=== PATIENT | male | born 1955 | race American Indian/Alaskan Native ===

== ENCOUNTER 2016-10-24 05:52 | Inpatient (IN) | payer MEDICAID, MEDICARE ==
[2016-10-24] MEDS ORDERED: EPINEPHrine 1 mg/ml (1:1000) Inj SC ONE (06:00)
[2016-10-24] MEDS ORDERED: DiphenhydrAMINE 50 mg/ml Inj IVP STA ×2 (06:00)
[2016-10-24] MEDS ORDERED: EPINEPHrine 1 mg/ml (1:1000) Inj IV ONE (06:00)
--- NOTE | 2016-10-24 06:02 | C.PDOC ---
History Of Present Illness patient presents by himself to the ed complaining of swollen tongue. Pt has just started hctz/lisinopril for hypertension . Tolerating his own secretions. No chest pain, palpitations Time Seen by Provider: 10/24/16 05:59 Chief Complaint (Nursing): Allergic Reaction History Per: Patient History/Exam Limitations: clinical condition Onset/Duration Of Symptoms: Hrs Current Symptoms Are (Timing): Still Present Context: Other (medication) Possible Cause: Medication, RAHUL Inhibitor Associated Symptoms: Swelling Home/EMS Treatment: None Severity: Severe Pain Scale Rating Of: 9 Recent travel outside of the [place]: No Additional History Per: Patient Past Medical History Reviewed: Historical Data, Nursing Documentation, Vital Signs Vital Signs: Last Vital Signs Temp 97.2 F L 10/24/16 05:55 Pulse 81 10/24/16 06:39 Resp 14 10/24/16 06:39 BP 144/85 10/24/16 06:39 Pulse Ox 100 10/24/16 06:39 - Medical History PMH: HTN - [facility] Procedures CLOSURE SKIN & SUBCUTANEOUS NEC (03/25/13) Family History: States: No Known Family Hx - Social History Hx Tobacco Use: Yes Hx Alcohol Use: Yes (chronic alcoholic) Hx Substance Use: No - Immunization History Hx Tetanus Toxoid Vaccination: No Hx Influenza Vaccination: No Hx Pneumococcal Vaccination: No Review Of Systems Constitutional: Negative for: Sweats Eyes: Negative for: Redness ENT: Positive for: Mouth Swelling, Throat Swelling. Negative for: Throat Pain Cardiovascular: Negative for: Chest Pain Respiratory: Positive for: Shortness of Breath Gastrointestinal: Negative for: Nausea, Vomiting Genitourinary: Negative for: Dysuria Musculoskeletal: Negative for: Back Pain Skin: Negative for: Rash Neurological: Negative for: Weakness Psych: Negative for: Anxiety Physical Exam - Physical Exam Appears: In Acute Distress Skin: Warm, Dry Head: Normacephalic Eye(s): bilateral: Normal Inspection Nose: Normal Oral Mucosa: Moist Tongue: Swelling Lips: Swelling (mild) Gingiva: Normal Appearing Throat: No Drooling Neck: Trachea Midline, Supple Chest: Symmetrical Cardiovascular: Rhythm Regular Respiratory: No Rales, No Rhonchi, No Wheezing Gastrointestinal/Abdominal: Soft, No Tenderness, No Distention Back: No CVA Tenderness Extremity: Normal ROM Extremity: Bilateral: Atraumatic, No Pedal Edema Pulses: Left Dorsalis Pedis: Normal, Right Dorsalis Pedis: Normal Neurological/Psych: Oriented x3, Normal Speech, Normal Cognition Gait: Steady ED Course And Treatment - Laboratory Results Result Diagrams: 10/24/16 06:22 ECG: Interpreted By Me, Viewed By Me ECG Rhythm: Sinus Rhythm (80), 1st Degree HB, Nonspecific Changes Rate From EC Pulse Ox Interpretation: Normal - Radiology CXR: Interpreted by Me Progress Note: started on solumedrol,pepcid, benadryl and sq epi. Saturation 98- 100%. spoke with anesthesia finance controller - they're aware of the pt's condition and possible intubation. spoke with general surgery and they're also aware of possible emergency trach Critical Care Time - Critical Care Note Total Time (in mins): 30 Documented critical care: time excludes all time spent performing seperately billable procedures. Disposition Counseled Patient/Family Regarding: Studies Performed, Diagnosis - Disposition Disposition Time: 05:59 Condition: GUARDED Forms: [facility] [employer] ([place]rian) - Clinical Impression Clinical Impression: Angioedema Physician Patient Turnover Patient Signed Over To: Natalya Flannery Handoff Comments: pending labs, re-assesment and admission
[2016-10-24] MEDS ORDERED: Sodium Chloride 0.9% 1,000 ML IV ONE (06:13)
[2016-10-24 06:26] LABS: BASO # 0.1 K/uL (0.0-0.2); BASO % 1.2 % (0.0-2.0); EOS # 0.6 K/uL (0.0-0.7); HEMATOCRIT 44.4 % (35.0-51.0); LYMPH # 3.1 K/uL (1.0-4.3); LYMPH % 37.2 % (20.0-40.0); MEAN CELL VOLUME 95.3 fL (80.0-94.0); MEAN CORPUSCULAR HEMOGLOBIN 32.4 pg (27.0-31.0); MEAN PLATELET VOLUME 10.6 fL (7.2-11.7); MONO # 1.2 K/uL (0.0-0.8); NRBC % 0.2 % (0.0-2.0); RED CELL DISTRIBUTION WIDTH 13.4 % (11.5-14.5); WHITE BLOOD COUNT 8.5 K/uL (4.8-10.8)
[2016-10-24 06:54] LABS: BLOOD UREA NITROGEN 16 mg/dL (9-20); CALCIUM 9.1 mg/dl (8.6-10.4); CARBON DIOXIDE 25 mmol/L (22-30); CHLORIDE 101 mmol/L (98-107); GFR AFRICAN-AMERICAN > 60; GLUCOSE,RANDOM 89 mg/dL (75-110); POTASSIUM 3.9 mmol/L (3.6-5.2); SODIUM 138 mmol/L (132-148)
--- NOTE | 2016-10-24 07:59 | RAD ---
PROCEDURE: CHEST RADIOGRAPH, 1 VIEW HISTORY: angioedema COMPARISON: None available. FINDINGS: LUNGS: Shallow lung volumes. Asymmetrical elevation -left hemidiaphragm-chronicity unknown no consolidation PLEURA: No pneumothorax or pleural fluid seen. CARDIOVASCULAR: Normal heart size. Possible mild central pulmonary venous congestion OSSEOUS STRUCTURES: No significant abnormalities. VISUALIZED UPPER ABDOMEN: Normal. OTHER FINDINGS: None. IMPRESSION: Possible mild central pulmonary venous congestion (versus crowding -shallow lung volumes). . Normal heart size
[2016-10-24 08:08] LABS: INR 1.1
[2016-10-24] MEDS ORDERED: DiphenhydrAMINE 50 mg/ml Inj IVP PRN (10:30)
[2016-10-24] MEDS: Dexamethasone 4 mg/1 ml IV SCH ×2 (10:50→18:07)
[2016-10-24] MEDS: DiphenhydrAMINE 50 mg/ml Inj IVP SCH ×2 (10:59→18:07)
--- NOTE | 2016-10-24 12:43 | CP.PCM.CON ---
History of Present Illness - History of Present Illness History of Present Illness: General Surgery- Dr. Suero 61M hx HTN presented to the ED with Angioedema after taking is RAHUL-I for the first time earlier today. Pt was given Benadryl and symptoms are slowly resolving. Pt is able to speak during encounter. AVSS. Denies current Nausea, vomiting, diarrhea, fevers, chills, CP. PMH: HTN PSH: none ALL: NKDA Past Patient History - Infectious Disease Hx of Infectious Diseases: None - Past Social History Smoking Status: Never Smoked - CARDIAC Hx Hypertension: Yes - MUSCULOSKELETAL/RHEUMATOLOGICAL Hx Falls: No - PSYCHIATRIC Hx Substance Use: No - SURGICAL HISTORY Hx Surgeries: Yes Hx Cataract Extraction: Yes (left eye) - ANESTHESIA Hx Anesthesia: Yes Hx Anesthesia Reactions: No Hx Malignant Hyperthermia: No Has any member of the family had a problem w/ anesthesia?: No Meds Allergies/Adverse Reactions: Allergies Allergy/AdvReac Type Severity Reaction Status Date / Time No Known Allergies Allergy Verified 10/24/16 06:13 - Medications Medications: Current Medications Dexamethasone (Decadron Inj) 4 mg IV Q8H [facility] Last Admin: 10/24/16 10:50 Dose: 4 mg Diphenhydramine HCl (Benadryl) 25 mg IVP Q8H [facility] Stop: 10/25/16 03:01 Last Admin: 10/24/16 10:59 Dose: 25 mg Famotidine (Pepcid) 20 mg IVP DAILY [facility] Last Admin: 10/24/16 10:51 Dose: 20 mg Heparin Sodium (Porcine) (Heparin) 5,000 units SC Q12 [facility] Last Admin: 10/24/16 10:53 Dose: 5,000 units Physical Exam - Constitutional Appears: Agitated - Head Exam Additional comments: tongue swollen however able to speak - Respiratory Exam Respiratory Exam: NORMAL BREATHING PATTERN. absent: Accessory Muscle Use, Rhonchi, Wheezes - Cardiovascular Exam Cardiovascular Exam: +S1, +S2 - GI/Abdominal Exam GI & Abdominal Exam: Soft. absent: Distended, Firm, Rigid, Tenderness - Extremities Exam Extremities exam: Positive for: normal capillary refill - Neurological Exam Neurological exam: Alert, Oriented x3 - Skin Skin Exam: Normal Color Results - Vital Signs Recent Vital Signs: Last Vital Signs Temp 98.3 F 10/24/16 12:00 Pulse 69 10/24/16 12:00 Resp 16 08/17/17 12:09 BP 133/98 H 10/24/16 12:00 Pulse Ox 99 10/24/16 12:09 - Labs Result Diagrams: 10/24/16 06:22 10/24/16 06:22 Labs: Laboratory Results - last 24 hr 10/24/16 10/24/16 07:54 07:54 PT 11.9 INR 1.1 APTT 26 Blood Type A POSITIVE Blood Type Confirm A POSITIVE Antibody Screen Negative Assessment & Plan - Assessment and Plan (Free Text) Assessment: 61M w/ angioedema Plan: - airway is not compromised at this time - no acute surgical intervention at this time - further recs per Dr. Pio Brooks PGY1
--- NOTE | 2016-10-24 13:37 | OP ---
PROCEDURE DATE: 10/24/2016 PREOPERATIVE DIAGNOSIS: Possible airway obstruction. POSTOPERATIVE DIAGNOSIS: Possible airway obstruction. PROCEDURE: Flexible laryngoscopy. SIGNIFICANT FINDINGS: No airway obstruction. DESCRIPTION OF PROCEDURE: The patient was placed in a seated position. Nose was decongested using Afrin. A flexible laryngoscope was inserted into the nasal cavity. It was passed to the nasopharynx, oropharynx, hypopharynx. The base of tongue, vallecula, epiglottis, A/E folds, arytenoids, false cords, true cords, pharyngeal anton, piriform sinuses were brought in to view. No masses or lesions were noted. No erythema or edema was noted. The scope was removed. The patient tolerated the procedure. Airway obstruction not noted. Adrián Cota MD
--- NOTE | 2016-10-24 16:40 | CP.PCM.HP ---
History of Present Illness - History of Present Illness History of Present Illness: Patient's with a history of hypertension history of osteoarthritis came in as somebody started him on lisinopril recently came in with the tongue swelling unable to speak and swelling of the lips received a steroid patient's was improved seen by Dr. Whelan seen by evp and chief operating officer eventually patient is hospitalized no fever no chills no nausea vomiting not taking anymore lisinopril Past Patient History - Infectious Disease Hx of Infectious Diseases: None - Past Social History Smoking Status: Never Smoked - CARDIAC Hx Hypertension: Yes - MUSCULOSKELETAL/RHEUMATOLOGICAL Hx Falls: No - PSYCHIATRIC Hx Substance Use: No - SURGICAL HISTORY Hx Surgeries: Yes Hx Cataract Extraction: Yes (left eye) - ANESTHESIA Hx Anesthesia: Yes Hx Anesthesia Reactions: No Hx Malignant Hyperthermia: No Has any member of the family had a problem w/ anesthesia?: No Meds Allergies/Adverse Reactions: Allergies Allergy/AdvReac Type Severity Reaction Status Date / Time No Known Allergies Allergy Verified 10/24/16 06:13 Physical Exam - Constitutional Appears: Well - Head Exam Head Exam: ATRAUMATIC, NORMAL INSPECTION, NORMOCEPHALIC - Eye Exam Eye Exam: EOMI, Normal appearance, PERRL Pupil Exam: NORMAL ACCOMODATION, PERRL - ENT Exam ENT Exam: Mucous Membranes Moist, Normal Exam - Neck Exam Neck exam: Positive for: Normal Inspection - Respiratory Exam Respiratory Exam: Decreased Breath Sounds - Cardiovascular Exam Cardiovascular Exam: REGULAR RHYTHM, +S1, +S2 - GI/Abdominal Exam GI & Abdominal Exam: Diminished Bowel Sounds, Soft - Rectal Exam Rectal Exam: Deferred Results - Vital Signs Recent Vital Signs: Last Vital Signs Temp 97.6 F 10/24/16 16:00 Pulse 67 10/24/16 16:00 Resp 18 10/24/16 16:00 BP 121/80 10/24/16 15:55 Pulse Ox 96 10/24/16 16:00 - Labs Result Diagrams: 10/24/16 06:22 10/24/16 06:22 Labs: Laboratory Results - last 24 hr 10/24/16 10/24/16 07:54 07:54 PT 11.9 INR 1.1 APTT 26 Blood Type A POSITIVE Blood Type Confirm A POSITIVE Antibody Screen Negative
--- NOTE | 2016-10-24 18:05 | CP.CCUPN ---
CCU Subjective - Physician Review Events Since Last Encounter (Free Text): 10/24/16 18:28 The Patient was seen and examined at the bedside, Medical records reviewed, and management issues were discussed and formulated. All clinical/lab/hemodynamic/radiographic data were reviewed 61 Y/O M with PMHx of HTN, who presents by himself to the emergency department complaining of swollen tongue, Pt was recently started on hctz/Lisinopril. On Exam Tongue significantly swollen but not protruding from lips, No stridor and tolerating his own secretions. No chest pain, palpitations, Fever/chills Pt was given Solumedrol, Pepcid, Benadryl and sq. epi. for Angioedema He was evaluated by Surgery, ENT and anesthesia, and admitted to the ICU for further managements. CCU Objective - Vital Signs / Intake & Output Vital Signs (Last 4 hours): Vital Signs Temp Pulse Resp BP Pulse Ox 10/24/16 16:00 97.6 F 67 18 96 10/24/16 15:55 68 18 121/80 97 10/24/16 15:50 66 19 96 10/24/16 15:40 67 21 96 10/24/16 15:30 67 20 97 10/24/16 15:20 69 18 97 10/24/16 15:10 65 16 96 10/24/16 15:00 68 19 127/96 H 96 10/24/16 14:55 69 14 127/96 H 96 10/24/16 14:50 71 20 96 10/24/16 14:40 67 17 97 10/24/16 14:30 66 16 96 10/24/16 14:20 66 17 95 10/24/16 14:10 69 16 96 Intake and Output (Last 8hrs): Intake & Output 10/24/16 10/24/16 10/24/16 06:59 14:59 22:59 Intake Total 413 0 Output Total 700 200 Balance -287 -200 Weight 239 lb 8 oz Intake: Intake, IV Amount 100 Left Antecubital 100 Oral 0 0 Blood Product 313 Output: Urine 700 200 Urine, Voided 300 200 Other: # Bowel Movements 0 0 - Physical Exam Head: Positive for: Atraumatic, Normocephalic. Negative for: Tenderness, Contusion Pupils: Positive for: PERRL. Negative for: Sluggish, Non-Reactive Extroacular Muscles: Positive for: EOMI. Negative for: Gaze Palsy, Entrapment Conjunctiva: Positive for: Normal. Negative for: Injected Ears: Positive for: Normal Mouth: Positive for: Moist Mucous Membranes. Negative for: Drooling, Normal Lips (Swollen), Normal Tounge (Swollen) Pharnyx: Positive for: Normal Nose (Internal): Positive for: Normal Inspection Neck: Positive for: Normal Range of Motion, Trachea Midline. Negative for: Meningeal Signs, MIDLINE TENDERNESS, Paraspinal Tenderness, JVD, Lymphadenopathy , Bruit, Other Respiratory/Chest: Positive for: Clear to Auscultation, Good Air Exchange. Negative for: Accessory Muscle Use Cardiovascular: Positive for: Regular Rate and Rhythm, Normal S1, S2, Peripheal Pulses Present. Negative for: Murmurs, Irregular Rhythm, Tachycardic, Bradycardic Abdomen: Positive for: Normal Bowel Sounds. Negative for: Tenderness, Distention, Peritoneal Signs Upper Extremity: Positive for: Normal Inspection, NORMAL PULSES, Capillary Refill < 2s. Negative for: Cyanosis, Edema Lower Extremity: Positive for: Normal Inspection, NORMAL PULSES, Capillary Refill < 2 s. Negative for: Edema, CALF TENDERNESS, Cyanosis Neurological: Positive for: GCS=15, CN II-XII Intact, Speech Normal, Motor Func Grossly Intact, Normal Sensory Function Psychiatric: Positive for: Alert, Oriented x 3 - Medications Active Medications: Active Medications Generic Name Dose Route Start Last Admin Trade Name Freq PRN Reason Stop Dose Admin Dexamethasone 4 mg 10/24/16 10:45 10/24/16 10:50 Decadron Inj IV 4 mg Q8H [facility]ANDY Administration Diphenhydramine HCl 25 mg 10/24/16 11:00 10/24/16 10:59 Benadryl IVP 10/25/16 03:01 25 mg Q8H [facility] Administration Famotidine 20 mg 10/24/16 10:45 10/24/16 10:51 Pepcid IVP 20 mg DAILY [facility] Administration Heparin Sodium (Porcine) 5,000 units 10/24/16 10:45 10/24/16 10:53 Heparin SC 5,000 units Q12 [facility] Administration - Patient Studies Lab Studies: Lab Studies 10/24/16 10/24/16 Range/Units 07:54 07:54 PT 11.9 (9.7-12.2) SECONDS INR 1.1 APTT 26 (21-34) SECONDS Blood Type A POSITIVE Blood Type Confirm A POSITIVE Antibody Screen Negative Laboratory Results - last 24 hr 10/24/16 10/24/16 07:54 07:54 PT 11.9 INR 1.1 APTT 26 Blood Type A POSITIVE Blood Type Confirm A POSITIVE Antibody Screen Negative Review of Systems - Cardiovascular Cardiovascular: absent: As Per HPI, Acrocyanosis, Chest Pain, Chest Pain at Rest , Chest Pain with Activity, Claudication, Diaphoresis, Dyspnea, Dyspnea on Exertion, Edema, Irregular Heart Rhythm, Pain Radiating to Arm/Neck/Jaw, Leg Edema, Leg Ulcers, Lightheadedness, Orthopnea, Palpitations, Paroxysmal Nocturnal Dyspnea, Pedal Edema, Radiating Pain, Rapid Heart Rate, Slow Heart Rate, Syncope, Other, UNREMARKABLE - Respiratory Respiratory: absent: As Per HPI, Cough, Dyspnea, Hemoptysis, Dyspnea on Exertion , Wheezing, Snoring, Stridor, Pain on Inspiration, Chest Congestion, Excessive Mucous Production, Change in Mucous Color, Pain with Coughing, Other, UNREMARKABLE Critical Care Progress Note - Extremities/Vascular Does the Patient have a Central Venous Catheter?: No Does the Patient need a Central Venous Catheter?: No Does the Patient have a Shields Catheter?: No Does the Patient need a Shields Catheter?: No - Nutrition Nutrition: Nutrition Category Date Time Status NPO Diet [DIET] Diets 10/24/16 Breakfast Active Assessment/Plan (1) HTN (hypertension) Current Visit: Yes Status: Acute (2) Angioedema Current Visit: Yes Status: Acute - Assessment and Plan (Free Text) Assessment: ADMIT TO ICU for hemodynamic monitoring Pt was given Solumedrol, Pepcid, Benadryl and sq. epi. for Angioedema, will continue all Evaluated by ENT, airway is not compromised FFP Monitor Resp status NPO IV HYDRATION WITH 0.9% NS @ 100 ml/hr IV STEROIDS RESTAER OUTPATIENT Meds except RAHUL BD NEBS Q 6H PRN DVT PPX WITH SCDs Transfer to floor in am if resp status remains stable
[2016-10-25 00:08] VITALS: RESP 20
[2016-10-25] MEDS: Dexamethasone 4 mg/1 ml IV SCH ×3 (02:49→20:41)
[2016-10-25] MEDS: DiphenhydrAMINE 50 mg/ml Inj IVP SCH (02:49)
[2016-10-25 07:49] LABS: BASO % 0.1 % (0.0-2.0); HEMATOCRIT 45.5 % (35.0-51.0); LYMPH # 1.4 K/uL (1.0-4.3); LYMPH % 9.1 % (20.0-40.0); MEAN CELL VOLUME 96.3 fL (80.0-94.0); MEAN CORPUSCULAR HEMOGLOBIN 32.8 pg (27.0-31.0); MEAN PLATELET VOLUME 10.6 fL (7.2-11.7); MONO # 0.6 K/uL (0.0-0.8); MONO % 3.6 % (0.0-10.0); NRBC % 0.1 % (0.0-2.0); PLATELET COUNT 141 K/uL (130-400); RED CELL DISTRIBUTION WIDTH 13.8 % (11.5-14.5)
[2016-10-25 07:55] LABS: WHITE BLOOD COUNT 15.7 K/uL (4.8-10.8)
[2016-10-25 08:08] LABS: CHLORIDE 104 mmol/L (98-107)
[2016-10-25 08:09] LABS: SODIUM 140 mmol/L (132-148)
[2016-10-25 08:11] LABS: ALB/GLOB RATIO 1.1 (1.0-2.1); ALKALINE PHOSPHATASE 77 U/L (38-126); AST/SGOT 26 U/L (17-59); BILIRUBIN,TOTAL 0.7 mg/dL (0.2-1.3); CARBON DIOXIDE 21 mmol/L (22-30); GFR AFRICAN-AMERICAN > 60; TOTAL PROTEIN 7.5 g/dL (6.3-8.3)
[2016-10-25 08:12] LABS: ALT/SGPT 32 U/L (21-72); BLOOD UREA NITROGEN 22 mg/dL (9-20); GLUCOSE,RANDOM 134 mg/dL (75-110)
[2016-10-25 09:03] LABS: NEUTROPHIL 86 % (50-75); TOTAL CELLS COUNTED 100
--- NOTE | 2016-10-25 15:12 | CP.PCM.PN ---
Subjective - Date & Time of Evaluation Date of Evaluation: 10/25/16 Time of Evaluation: 07:40 - Subjective Subjective: PGY-[address] Mcgrath Patient seen and examined at bedside. No acute events overnight. Patient reports his tongue and mouth swelling has improved. Patient can take sips of water but starts to cough soon after. Patient states he has been talking HCTZ for a long time, unsure why his provided prescribed him lisinopril. Denies headache, fever, chills, shortness of breath, chest pain, nausea, vomiting, or diarrhea. Objective - Vital Signs/Intake and Output Vital Signs (last 24 hours): Temp Pulse Resp BP Pulse Ox 97.7 F 61 20 116/79 95 10/25/16 07:50 10/25/16 07:50 10/25/16 07:50 10/25/16 07:50 10/25/16 07:50 Intake and Output: 10/25/16 10/25/16 06:59 18:59 Intake Total 0 Output Total 0 Balance 0 - Medications Medications: Current Medications Dexamethasone (Decadron Inj) 4 mg IV Q8H [facility] Last Admin: 10/25/16 10:01 Dose: 4 mg Famotidine (Pepcid) 20 mg IVP DAILY [facility] Last Admin: 10/25/16 10:01 Dose: 20 mg Heparin Sodium (Porcine) (Heparin) 5,000 units SC Q12 [facility] Last Admin: 10/25/16 10:01 Dose: 5,000 units Sodium Chloride (Sodium Chloride 0.9%) 1,000 mls @ 80 mls/hr IV .[id number] [facility] - Labs Labs: 10/25/16 07:23 10/25/16 07:23 PT 11.9 SECONDS (9.7-12.2) 10/24/16 07:54 INR 1.1 10/24/16 07:54 APTT 26 SECONDS (21-34) 10/24/16 07:54 - Constitutional Appears: Non-toxic, No Acute Distress - Head Exam Head Exam: NORMOCEPHALIC - Eye Exam Eye Exam: Normal appearance - ENT Exam ENT Exam: Mucous Membranes Moist Additional comments: tongue swelling improved, patient is able to speak in full sentences. Coughs as soon as he takes a sip of water. - Neck Exam Neck Exam: Normal Inspection - Respiratory Exam Respiratory Exam: Clear to Ausculation Bilateral, NORMAL BREATHING PATTERN. absent: Respiratory Distress - Cardiovascular Exam Cardiovascular Exam: REGULAR RHYTHM, +S1, +S2. absent: Murmur - GI/Abdominal Exam GI & Abdominal Exam: Soft, Normal Bowel Sounds. absent: Tenderness - Extremities Exam Extremities Exam: Full ROM, Normal Capillary Refill, Normal Inspection. absent : Joint Swelling, Pedal Edema - Neurological Exam Neurological Exam: Alert, Awake, Oriented x3 - Psychiatric Exam Psychiatric exam: Normal Affect, Normal Mood - Skin Skin Exam: Dry, Intact, Normal Color, Warm Assessment and Plan - Assessment and Plan (Free Text) Assessment: Lisinopril induced angioedema -S/p laryngoscopy, no airway obstruction -Vitals, O2 saturation unremarkable -Speech and swallow evaluation -Sips of liquid for now, advance diet slowly -IVF NS PPX -Pepcid -Heparin Case discussed with attending Dr. Mcgrath
[2016-10-25] MEDS: Sodium Chloride 0.9% 1,000 ML IV SCH (15:49)
--- NOTE | 2016-10-25 18:55 | CP.PCM.PN ---
Subjective - Date & Time of Evaluation Date of Evaluation: 10/25/16 Time of Evaluation: 08:20 - Subjective Subjective: clinically same Objective - Vital Signs/Intake and Output Vital Signs (last 24 hours): Temp Pulse Resp BP Pulse Ox 97.5 F L 64 20 135/87 95 10/25/16 16:00 10/25/16 16:00 10/25/16 16:00 10/25/16 16:00 10/25/16 16:00 Intake and Output: 10/25/16 10/25/16 06:59 18:59 Intake Total 0 Output Total 0 Balance 0 - Medications Medications: Current Medications Dexamethasone (Decadron Inj) 4 mg IV Q8H [facility] Last Admin: 10/25/16 10:01 Dose: 4 mg Famotidine (Pepcid) 20 mg IVP DAILY [facility] Last Admin: 10/25/16 10:01 Dose: 20 mg Heparin Sodium (Porcine) (Heparin) 5,000 units SC Q12 [facility] Last Admin: 10/25/16 10:01 Dose: 5,000 units Sodium Chloride (Sodium Chloride 0.9%) 1,000 mls @ 80 mls/hr IV .[id number] [facility] Last Admin: 10/25/16 15:49 Dose: 80 mls/hr - Labs Labs: 10/25/16 07:23 10/25/16 07:23 PT 11.9 SECONDS (9.7-12.2) 10/24/16 07:54 INR 1.1 10/24/16 07:54 APTT 26 SECONDS (21-34) 10/24/16 07:54 - Constitutional Appears: Well - Head Exam Head Exam: ATRAUMATIC, NORMAL INSPECTION, NORMOCEPHALIC - Eye Exam Eye Exam: EOMI, Normal appearance, PERRL Pupil Exam: NORMAL ACCOMODATION, PERRL - ENT Exam ENT Exam: Mucous Membranes Moist, Normal Exam - Neck Exam Neck Exam: Full ROM, Normal Inspection. absent: Lymphadenopathy - Respiratory Exam Respiratory Exam: Decreased Breath Sounds - Cardiovascular Exam Cardiovascular Exam: REGULAR RHYTHM, +S1, +S2 - GI/Abdominal Exam GI & Abdominal Exam: Soft, Diminished Bowel Sounds - Rectal Exam Rectal Exam: Deferred
[2016-10-26] MEDS: Dexamethasone 4 mg/1 ml IV SCH ×3 (02:52→18:51)
[2016-10-26] MEDS: Sodium Chloride 0.9% 1,000 ML IV SCH ×2 (02:53→15:38)
[2016-10-26 08:15] LABS: RED CELL DISTRIBUTION WIDTH 13.8 % (11.5-14.5)
[2016-10-26 08:33] LABS: CHLORIDE 105 mmol/L (98-107)
[2016-10-26 08:34] LABS: POTASSIUM 3.6 mmol/L (3.6-5.2); SODIUM 140 mmol/L (132-148)
[2016-10-26 08:36] LABS: ALB/GLOB RATIO 1.1 (1.0-2.1); AST/SGOT 21 U/L (17-59); BILIRUBIN,TOTAL 0.6 mg/dL (0.2-1.3); CARBON DIOXIDE 22 mmol/L (22-30); GFR AFRICAN-AMERICAN > 60; TOTAL PROTEIN 6.9 g/dL (6.3-8.3)
[2016-10-26 08:37] LABS: ALKALINE PHOSPHATASE 75 U/L (38-126); ALT/SGPT 26 U/L (21-72); BASO % 0.2 % (0.0-2.0); BLOOD UREA NITROGEN 20 mg/dL (9-20); CALCIUM 8.4 mg/dl (8.6-10.4); GLUCOSE,RANDOM 113 mg/dL (75-110); HEMATOCRIT 42.4 % (35.0-51.0); LYMPH # 1.1 K/uL (1.0-4.3); LYMPH % 7.1 % (20.0-40.0); MEAN CELL VOLUME 97.3 fL (80.0-94.0); MEAN CORPUSCULAR HGB CONC 32.9 g/dL (33.0-37.0); MEAN PLATELET VOLUME 11.5 fL (7.2-11.7); MONO # 0.5 K/uL (0.0-0.8); NRBC % 0.3 % (0.0-2.0); WHITE BLOOD COUNT 15.2 K/uL (4.8-10.8)
[2016-10-26 08:42] LABS: PLATELET COUNT 123 K/uL (130-400)
[2016-10-26 10:04] LABS: NEUTROPHIL 92 % (50-75); TOTAL CELLS COUNTED 100
--- NOTE | 2016-10-26 14:28 | CP.PCM.PN ---
Subjective - Date & Time of Evaluation Date of Evaluation: 10/26/16 Time of Evaluation: 08:20 - Subjective Subjective: clinically same Objective - Vital Signs/Intake and Output Vital Signs (last 24 hours): Temp Pulse Resp BP Pulse Ox 97.8 F 64 20 144/79 98 10/26/16 08:16 10/26/16 08:16 10/26/16 08:16 10/26/16 08:16 10/26/16 08:16 Intake and Output: 10/26/16 10/26/16 06:59 18:59 Intake Total 640 640 Balance 640 640 - Medications Medications: Current Medications Dexamethasone (Decadron Inj) 4 mg IV Q8H [facility] Last Admin: 10/26/16 09:59 Dose: 4 mg Famotidine (Pepcid) 20 mg IVP DAILY [facility] Last Admin: 10/26/16 09:59 Dose: 20 mg Heparin Sodium (Porcine) (Heparin) 5,000 units SC Q12 [facility] Last Admin: 10/26/16 09:59 Dose: 5,000 units Sodium Chloride (Sodium Chloride 0.9%) 1,000 mls @ 80 mls/hr IV .[id number] [facility] Last Admin: 10/26/16 02:53 Dose: 80 mls/hr - Labs Labs: 10/26/16 08:01 10/26/16 08:01 PT 11.9 SECONDS (9.7-12.2) 10/24/16 07:54 INR 1.1 10/24/16 07:54 APTT 26 SECONDS (21-34) 10/24/16 07:54 - Constitutional Appears: Well - Head Exam Head Exam: ATRAUMATIC, NORMAL INSPECTION, NORMOCEPHALIC - Eye Exam Eye Exam: EOMI, Normal appearance, PERRL Pupil Exam: NORMAL ACCOMODATION, PERRL - ENT Exam ENT Exam: Mucous Membranes Moist, Normal Exam - Neck Exam Neck Exam: Full ROM, Normal Inspection. absent: Lymphadenopathy - Respiratory Exam Respiratory Exam: Decreased Breath Sounds - Cardiovascular Exam Cardiovascular Exam: REGULAR RHYTHM, +S1, +S2 - GI/Abdominal Exam GI & Abdominal Exam: Soft, Diminished Bowel Sounds - Rectal Exam Rectal Exam: Deferred
[2016-10-27] MEDS: Dexamethasone 4 mg/1 ml IV SCH (03:04)
[2016-10-27] MEDS: Sodium Chloride 0.9% 1,000 ML IV SCH ×2 (03:05→04:45)
--- NOTE | 2016-10-27 07:36 | CP.PCM.PN ---
Subjective - Date & Time of Evaluation Date of Evaluation: 10/27/16 Time of Evaluation: 05:20 - Subjective Subjective: clinically same Objective - Vital Signs/Intake and Output Vital Signs (last 24 hours): Temp Pulse Resp BP Pulse Ox 98.3 F 67 20 129/83 96 10/27/16 00:00 10/27/16 00:00 10/27/16 00:00 10/27/16 00:00 10/27/16 00:00 Intake and Output: 10/27/16 10/27/16 06:59 18:59 Intake Total 1960 Balance 1960 - Medications Medications: Current Medications Dexamethasone (Decadron Inj) 4 mg IV Q8H [facility] Last Admin: 10/27/16 03:04 Dose: 4 mg Famotidine (Pepcid) 20 mg IVP DAILY [facility] Last Admin: 10/26/16 09:59 Dose: 20 mg Heparin Sodium (Porcine) (Heparin) 5,000 units SC Q12 [facility] Last Admin: 10/26/16 21:15 Dose: 5,000 units Sodium Chloride (Sodium Chloride 0.9%) 1,000 mls @ 80 mls/hr IV .[id number] [facility] Last Admin: 10/27/16 04:45 Dose: Not Given - Labs Labs: 10/26/16 08:01 10/26/16 08:01 PT 11.9 SECONDS (9.7-12.2) 10/24/16 07:54 INR 1.1 10/24/16 07:54 APTT 26 SECONDS (21-34) 10/24/16 07:54 - Constitutional Appears: Well - Head Exam Head Exam: ATRAUMATIC, NORMAL INSPECTION, NORMOCEPHALIC - Eye Exam Eye Exam: EOMI, Normal appearance, PERRL Pupil Exam: NORMAL ACCOMODATION, PERRL - ENT Exam ENT Exam: Mucous Membranes Moist, Normal Exam - Neck Exam Neck Exam: Full ROM, Normal Inspection. absent: Lymphadenopathy - Respiratory Exam Respiratory Exam: Decreased Breath Sounds - Cardiovascular Exam Cardiovascular Exam: REGULAR RHYTHM, +S1, +S2 - GI/Abdominal Exam GI & Abdominal Exam: Soft, Diminished Bowel Sounds - Rectal Exam Rectal Exam: Deferred
[2016-10-27] MEDS ORDERED: Pneumococcal 23-Valent Vaccine IM ONE (07:51)
[2016-10-27 08:47] VITALS: BP 126/75; PULSE 65; TEMP 98.1; O2SAT 94
--- NOTE | 2016-10-27 18:12 | CARD ---
APPROVED REPORT EKG Measurement Heart [id number] <Conclusion> Sinus rhythm with 1st degree AV block Moderate voltage criteria for LVH, may be normal variant Nonspecific T wave abnormality Prolonged QT Abnormal ECG
== END 2016-10-27 09:04 | disposition home or self-care (01) | DRG 447 ==
LOC: C.ER 05:52 → C.9E 07:20 → C.9I 08:50 → C.3T 22:43
PROVIDERS: ADMIT Internal Medicine Nephrology; ATTEND Internal Medicine Nephrology
PROC: 0CJS8ZZ Inspection of Larynx, Via Natural or Artificial Opening Endoscopic (ICD-10-PCS; principal; 2016-10-24)
DX: T78.3XXA Angioneurotic edema, initial encounter (principal); I10 Essential (primary) hypertension; T46.4X5A Adverse effect of angiotensin-converting-enzyme inhibitors, initial encounter; Y84.8 Other medical procedures as the cause of abnormal reaction of the patient, or of later complication, without mention of misadventure at the time of the procedure; F17.210 Nicotine dependence, cigarettes, uncomplicated; F10.20 Alcohol dependence, uncomplicated

== ENCOUNTER 2016-11-18 15:01 | Emergency (ER) | payer MEDICAID ==
[2016-11-18 15:11] VITALS: RESP 18; TEMP 98.2; O2SAT 97
--- NOTE | 2016-11-18 15:55 | C.PDOC ---
History Of Present Illness 61 y/o male with hx of HTN brought to ED via BLS s/p syncope episode while at [facility] today. Patient states he was at the [facility] and started having abdominal pain followed by passing out for "a brief moment". Patient reports abdominal pain has improved and denies fever, headache, nausea, vomiting or any other complaints at this time. Time Seen by Provider: 11/18/16 15:30 Chief Complaint (Nursing): Syncope History Per: Patient History/Exam Limitations: no limitations Onset/Duration Of Symptoms: Hrs Current Symptoms Are (Timing): Still Present Past Medical History Reviewed: Historical Data, Nursing Documentation, Vital Signs Vital Signs: Last Vital Signs Temp 98.2 F 11/18/16 15:11 Pulse 83 11/18/16 17:35 Resp 18 11/18/16 17:35 BP 131/91 H 11/18/16 17:35 Pulse Ox 97 11/18/16 17:35 - Medical History PMH: HTN Surgical History: No Surg Hx - [facility] Procedures CLOSURE SKIN & SUBCUTANEOUS NEC (03/25/13) INSPECTION OF LARYNX, ENDO (10/24/16) Family History: States: No Known Family Hx - Social History Hx Tobacco Use: Yes Hx Alcohol Use: Yes Hx Substance Use: No - Immunization History Hx Tetanus Toxoid Vaccination: No Hx Influenza Vaccination: No Hx Pneumococcal Vaccination: No Review Of Systems Except As Marked, All Systems Reviewed And Found Negative. Constitutional: Negative for: Fever, Chills Eyes: Negative for: Vision Change Respiratory: Negative for: Shortness of Breath Gastrointestinal: Positive for: Abdominal Pain. Negative for: Nausea, Vomiting Musculoskeletal: Negative for: Back Pain Skin: Negative for: Rash Neurological: Negative for: Weakness, Numbness, Dizziness Physical Exam - Physical Exam Appears: Non-toxic, No Acute Distress Skin: Normal Color, Warm, Dry, No Rash Head: Atraumatic, Normacephalic Eye(s): bilateral: Normal Inspection Oral Mucosa: Moist Neck: Normal ROM, Supple Chest: Symmetrical Cardiovascular: Rhythm Regular, No Murmur Respiratory: Normal Breath Sounds, No Rales, No Rhonchi, No Wheezing Gastrointestinal/Abdominal: Soft, Tenderness (Mild non focal abdominal), No Guarding, No Rebound Extremity: Normal ROM, Capillary Refill (<2 seconds) Extremity: Bilateral: Atraumatic Pulses: Left Radial: Normal, Right Radial: Normal Neurological/Psych: Oriented x3, Normal Speech, Normal Cranial Nerves, Normal Motor, Normal Sensation Gait: Steady ED Course And Treatment - Laboratory Results Result Diagrams: 11/18/16 16:36 11/18/16 16:36 ECG: Interpreted By Me, Viewed By Me O2 Sat by Pulse Oximetry: 97 (RA) Pulse Ox Interpretation: Normal Medical Decision Making Medical Decision Making: syncope - r/o abdominal pathology, intracranial, cardiac. - labs imaigng pending Plan: * ECG * CXR * UA * Blood work * pt reassesed after labs. labs unremarkable. requested pt to receive imaging to r /o intrcranial/intrabdominal pathology. pt refuses. also refuses admission. signs ama. oriented x 3. Disposition - Disposition Referrals: [facility] [Outside] [facility] [Outside] [facility]] Disposition: AGAINST MEDICAL ADVICE Disposition Time: 05:00 Condition: UNKNOWN Additional Instructions: return to er with worsneing symptoms or concerns. please see specialist. Instructions: Syncope (ED), Acute Abdominal Pain (ED), Against Medical Advice ( ED) Forms: [employer] (Pakistani) - Clinical Impression Clinical Impression: Syncope, Abdominal pain - Scribe Statement The provider has reviewed the documentation as recorded by the Scribguero Villarreal All medical record entries made by the Scribe were at my direction and personally dictated by me. I have reviewed the chart and agree that the record accurately reflects my personal performance of the history, physical exam, medical decision making, and the department course for this patient. I have also personally directed, reviewed, and agree with the discharge instructions and disposition.
[2016-11-18 16:41] LABS: BASO # 0.1 K/uL (0.0-0.2); BASO % 0.5 % (0.0-2.0); EOS # 0.1 K/uL (0.0-0.7); EOS % 0.7 % (0.0-4.0); HEMATOCRIT 49.1 % (35.0-51.0); LYMPH # 1.2 K/uL (1.0-4.3); LYMPH % 10.4 % (20.0-40.0); MEAN CELL VOLUME 96.6 fL (80.0-94.0); MEAN CORPUSCULAR HEMOGLOBIN 32.8 pg (27.0-31.0); MEAN CORPUSCULAR HGB CONC 33.9 g/dL (33.0-37.0); MEAN PLATELET VOLUME 9.5 fL (7.2-11.7); MONO # 0.6 K/uL (0.0-0.8); MONO % 5.3 % (0.0-10.0); NRBC % 0.1 % (0.0-2.0); WHITE BLOOD COUNT 11.4 K/uL (4.8-10.8)
[2016-11-18 16:54] LABS: CHLORIDE 106 mmol/L (98-107)
[2016-11-18 16:55] LABS: POTASSIUM 4.2 mmol/L (3.6-5.2); SODIUM 141 mmol/L (132-148)
[2016-11-18 16:57] LABS: ALKALINE PHOSPHATASE 79 U/L (38-126); AST/SGOT 27 U/L (17-59); BILIRUBIN,TOTAL 0.8 mg/dL (0.2-1.3); CARBON DIOXIDE 22 mmol/L (22-30); GFR AFRICAN-AMERICAN > 60; TOTAL PROTEIN 7.4 g/dL (6.3-8.3)
[2016-11-18 16:58] LABS: ALB/GLOB RATIO 1.3 (1.0-2.1); ALT/SGPT 34 U/L (21-72); BLOOD UREA NITROGEN 16 mg/dL (9-20); CALCIUM 9.2 mg/dl (8.6-10.4); GLUCOSE,RANDOM 120 mg/dL (75-110)
--- NOTE | 2016-11-18 17:06 | RAD ---
PROCEDURE: CHEST RADIOGRAPH, 1 VIEW HISTORY: chest pain COMPARISON: 10/24/2016. FINDINGS: LUNGS: Clear. PLEURA: No pneumothorax or pleural fluid seen. CARDIOVASCULAR: No radiographic findings to suggest acute or significant cardiovascular disease. OSSEOUS STRUCTURES: No significant abnormalities. VISUALIZED UPPER ABDOMEN: Normal. OTHER FINDINGS: None. IMPRESSION: No active disease. No acute/significant interval changes.
[2016-11-18 17:36] VITALS: BP 131/91; PULSE 83
== END 2016-11-18 17:39 | disposition left against medical advice (07) ==
LOC: C.ER 15:01
DX: R55 Syncope and collapse (principal); R10.9 Unspecified abdominal pain

== ENCOUNTER 2018-01-12 10:46 | Emergency (ER) | payer MEDICAID ==
--- NOTE | 2018-01-12 12:07 | C.PDOC ---
History Of Present Illness 62 y/o male presents to the ED with complaints of a rash to the right groin over past 3-4 days, described as itchy. Patient states he applied hydrocortisone cream, and then a lump developed today. He describes it as painful and swollen. Otherwise patient denies any fever, chills, discharge from site, numbness, or extremity weakness. Time Seen by Provider: 01/12/18 11:18 Chief Complaint (Nursing): Abnormal Skin Integrity History Per: Patient History/Exam Limitations: no limitations Onset/Duration Of Symptoms: Days (3-4) Current Symptoms Are (Timing): Still Present Past Medical History Reviewed: Historical Data, Nursing Documentation, Vital Signs Vital Signs: Last Vital Signs Temp 99 F 01/12/18 10:55 Pulse 74 01/12/18 10:55 Resp 16 01/12/18 10:55 BP 127/89 01/12/18 10:55 Pulse Ox 99 01/12/18 10:55 - Medical History PMH: Hepatitis, HTN Other Surgeries: Left eye cataract surgery - [facility] Procedures CLOSURE SKIN & SUBCUTANEOUS NEC (03/25/13) INSPECTION OF LARYNX, ENDO (10/24/16) Family History: States: No Known Family Hx - Social History Hx Tobacco Use: No Hx Alcohol Use: Yes Hx Substance Use: No - Immunization History Hx Tetanus Toxoid Vaccination: No Hx Influenza Vaccination: No Hx Pneumococcal Vaccination: No Review Of Systems Constitutional: Negative for: Fever, Chills Gastrointestinal: Negative for: Vomiting, Diarrhea Genitourinary: Positive for: Other (Painful swelling to right inguinal region, no discharge). Negative for: Dysuria, Incontinence, Penile Discharge Skin: Positive for: Rash (to right inguinal region) Neurological: Negative for: Weakness, Numbness Physical Exam - Physical Exam Appears: Well, Non-toxic, No Acute Distress Skin: Warm, Dry, No Rash Head: Atraumatic, Normacephalic Eye(s): bilateral: Normal Inspection Oral Mucosa: Moist Gastrointestinal/Abdominal: Soft, No Tenderness, No Distention, No Guarding, No Hernia Back: Normal Inspection Male Genital: Inguinal Swelling (3 x 2 cm indurated abscess swelling to the right inguinal area, (+) tender to palpation, with no discharge, warmth and erythema) Extremity: Normal ROM, No Swelling Extremity: Bilateral: Atraumatic, Normal Color And Temperature, Normal ROM Neurological/Psych: Oriented x3, Normal Speech Gait: Steady ED Course And Treatment O2 Sat by Pulse Oximetry: 99 (RA) Pulse Ox Interpretation: Normal Medical Decision Making Medical Decision Making: Impression: Inguinal hernia vs. abscess Patient was evaluated by Dr. Hernandez who agrees that exam is consistent with abscess. Initial Plan: 12:00pm Paged instructor adjunct surgical technician for consult. 12:19pm Second page. Patient given PO antibiotics and was instructed to apply warm compresses over the next 2 days and return to the Ed for possible I&D. Disposition - Disposition Referrals: [facility] [Outside] Disposition: HOME/ ROUTINE Disposition Time: 14:37 Condition: STABLE Additional Instructions: RETURN IN 2 DAYS FOR POSSIBLE I&D AND WOUND CHECK. Prescriptions: Cephalexin [Keflex] 500 mg PO BID #14 capsule Sulfamethoxazole/Trimethoprim [Bactrim DS 800 mg-160 mg] 1 tab PO BID #14 tab Instructions: Skin Abscess Forms: [facility] (Chinese) - Clinical Impression Clinical Impression: Abscess - PA / NUCLEAR STATION OPERATOR / Resident Statement MD/DO has reviewed & agrees with the documentation as recorded. - Scribe Statement The provider has reviewed the documentation as recorded by the Scribe (Eliana Kaur) All medical record entries made by the Scribe were at my direction and personally dictated by me. I have reviewed the chart and agree that the record accurately reflects my personal performance of the history, physical exam, medical decision making, and the department course for this patient. I have also personally directed, reviewed, and agree with the discharge instructions and disposition.
[2018-01-12] MEDS ORDERED: Tmp-Smz 800 mg-160 mg DS Tab PO STA (12:51)
[2018-01-12] MEDS ORDERED: Tmp-Smz 800 mg-160 mg DS Tab ONE (12:58)
[2018-01-12 13:11] VITALS: PULSE 73
[2018-01-12 14:42] VITALS: BP 160/96; RESP 20; TEMP 99.2; O2SAT 99
== END 2018-01-12 14:45 | disposition home or self-care (01) ==
LOC: C.ER 10:46
DX: L02.214 Cutaneous abscess of groin (principal)